=== PATIENT | male | born 1970 | race Caucasian/White ===

== ENCOUNTER → 2018-05-24 14:50 | Outpatient (CLI) | payer BC ==
[2016-06-13 01:45] VITALS: BMI 25.9
[~2018-05-24 14:50] MED LIST: CLONAZEPAM2 MG/TAB PO; DIOVAN80 MG PO; ENBREL25 MG/0.5 SQ; LIPITOR10 MG PO; NICODERM C1 PATCH .3 TRANSDERM; PROTONIX40 MG PO
== END | disposition home or self-care (01) ==
LOC: D.MRI 14:50
DX: M25.572 Pain in left ankle and joints of left foot (principal)